=== PATIENT | female | born 1945 | race Caucasian/White ===

== ENCOUNTER 2022-09-22 14:07 | Emergency (ER) | payer BC, SELFPAY ==
[2022-09-22 14:22] VITALS: BP 137/65; PULSE 70; RESP 16; TEMP 36.9; O2SAT 96; BMI 24.7
--- NOTE | 2022-09-22 17:10 | DI.US.S_ITS ---
PROCEDURE: US PERIPH VENOUS LOW EXTREM RT INDICATIONS: CALF PAIN TECHNIQUE: Real-time imaging, as well as color and pulse Doppler interrogation, were performed of the lower extremity deep veins from the inguinal ligament to the popliteal fossa. COMPARISON: None. FINDINGS: The common femoral, femoral and popliteal veins are normally compressible, and free of intraluminal thrombus. Color and pulse Doppler demonstrate normal phasic intraluminal flow. There is normal augmentation response to distal compression maneuver. IMPRESSION: No evidence of right lower extremity DVT.. Dictated by: Gordon Wasserman M.D. on 09/22/2022 at 16:33 Approved by: Gordon Wasserman M.D. on 09/22/2022 at 16:42
--- NOTE | 2022-09-22 17:32 | ED.BACK ---
HPI - Back Pain/Injury <Dominick Diaz PA-C - Last Filed: 09/22/22 18:28> General Chief Complaint: Back Pain/Injury Stated Complaint: back injury/feels like pinched nerve/hard to walk Time Seen by Provider: 09/22/22 15:28 Source: patient History of Present Illness HPI Narrative: 77-year-old female with past medical history of slipped disc presents to the ED with 6 days of right-sided lower back pain radiating down to the right leg. Patient states that she was leaning forward while doing something at home, when she felt a twinge in the right lower back, following which she is has lower back pain radiating down the right leg. Patient denies numbness, tingling, weakness. Patient has a distant history of slipped disc. Patient denies saddle paresthesias, urinary hesitancy, urinary incontinence, stool incontinence. Patient is able to bear weight and walk. Patient also points to a particular spot on the right calf that is particularly painful. No history of DVTs or PEs. Related Data Previous Rx's Medication Instructions Recorded cyclobenzaprine 10 mg tablet 10 mg PO TID PRN muscle spasm #30 09/22/22 tabs Allergies Allergy/AdvReac Type Severity Reaction Status Date / Time No Known Drug Allergies Allergy Verified 09/22/22 14:22 Review of Systems <Dominick Diaz PA-C - Last Filed: 09/22/22 18:28> Review of Systems ROS Unobtainable: All systems reviewed & are unremarkable except as noted in HPI and below Constitutional Constitutional: Denies chills, Denies fatigue, Denies fever(s), Denies frequent falls, Denies lethargy and Denies weakness Eyes Eyes: Denies change in vision, Denies eye discharge, Denies irritation and Denies loss of vision ENT Ears, Nose, Mouth, and Throat: Denies change in voice, Denies dizziness, Denies neck pain, Denies sore throat and Denies throat swelling Cardiovascular Cardiovascular: Denies chest pain, Denies irregular heart rhythm, Denies lightheadedness, Denies palpitations, Denies dyspnea, Denies dyspnea on exertion and Denies orthopnea Respiratory Respiratory: Denies cough, Denies dyspnea, Denies dyspnea on exertion and Denies wheezing Gastrointestinal Gastrointestinal: Denies abdominal pain, Denies change in bowel habits, Denies diarrhea, Denies nausea and Denies vomiting Genitourinary Genitourinary: Denies hematuria, Denies flank pain, Denies urinary incontinence and Denies urinary urgency Musculoskeletal Musculoskeletal: Reports back pain, Denies muscle weakness, Denies neck pain, Denies numbness and Denies tingling Comments: Lower back pain, right lower leg pain Integumentary/Breasts Skin/Breast: Denies pruritus, Denies erythema, Denies rash and Denies wounds Neurologic Neurologic: Denies behavioral changes, Denies confusion, Denies dizziness, Denies frequent falls, Denies loss of vision, Denies numbness, Denies tingling and Denies weakness Psychiatric Psychiatric: Denies anxiety, Denies behavioral changes, Denies confusion, Denies depression, Denies homicidal ideation and Denies suicidal ideation Endocrine Endocrine: Denies fatigue, Denies flushing and Denies palpitations Hematologic/Lymphatic Hematologic/Lymphatic: Denies easy bruising Allergic/Immunologic Allergic/Immunologic: Denies urticaria, Denies throat swelling and Denies wheezing Patient History <Dominick Diaz PA-C - Last Filed: 09/22/22 18:28> Social History Smoking Status: Never smoker Smoking Status: Never smoker alcohol intake frequency: other Substance Use Type: does not use Exam <Dominick Diaz PA-C - Last Filed: 09/22/22 18:28> Narrative Exam Narrative: Const General:?cooperative, healthy appearing and comfortable [facility] Head:?normal to inspection Ears:?hearing grossly normal bilaterally Nose:?external nose normal Face and sinus:?normal facial exam and sinuses nontender Mouth:?oral mucosae normal Throat:?posterior oropharynx normal Eyes General:?appearance normal, both eyes and all related structures Neck Neck:?normal visual inspection and no lymphadenopathy noted Resp Effort & Inspection:?normal respiratory effort Auscultation:?clear to auscultation bilaterally Cardio Rate:?regular rate Rhythm:?regular rhythm Musculoskeletal No midline tenderness to palpation. No paraspinal tenderness to palpation. Strength and sensation is intact. There is full range of motion. Patient is neurovascularly intact. Right lower calf without tenderness to palpation or bruising. Neuro General:?patient alert, patient awake and patient oriented x3 Initial Vital Signs Initial Vital Signs: Vital Signs Temperature 98.5 F 09/22/22 14:22 Pulse Rate 70 09/22/22 14:22 Respiratory Rate 16 09/22/22 14:22 Blood Pressure 137/65 09/22/22 14:22 Pulse Oximetry 96 09/22/22 14:22 Oxygen Delivery Method Room Air 09/22/22 14:22 <Gama Hutson DO - Last Filed: 09/25/22 14:13> Initial Vital Signs Initial Vital Signs: Vital Signs Temperature 98.5 F 09/22/22 14:22 Pulse Rate 70 09/22/22 14:22 Respiratory Rate 16 09/22/22 14:22 Blood Pressure 137/65 09/22/22 14:22 Pulse Oximetry 96 09/22/22 14:22 Oxygen Delivery Method Room Air 09/22/22 14:22 Course <Dominick Diaz PA-C - Last Filed: 09/22/22 18:28> Orders Ordered: Discontinued Medications Cyclobenzaprine HCl (Cyclobenzaprine 10 Mg Tablet) 10 mg PO NOW ONE Stop: 09/22/22 17:06 Last Admin: 09/22/22 18:03 Dose: 10 mg Documented By: LITTLE Vital Signs Vital signs: Vital Signs - 8 hr 09/22/22 14:22 Temperature 98.5 F Pulse Rate 70 Respiratory Rate 16 Blood Pressure 137/65 Pulse Oximetry 96 Oxygen Delivery Method Room Air <Gama Huston DO - Last Filed: 09/25/22 14:13> Orders Ordered: Discontinued Medications Cyclobenzaprine HCl (Cyclobenzaprine 10 Mg Tablet) 10 mg PO NOW ONE Stop: 09/22/22 17:06 Last Admin: 09/22/22 18:03 Dose: 10 mg Documented By: RL Vital Signs Vital signs: Vital Signs - 8 hr 09/22/22 14:22 Temperature 98.5 F Pulse Rate 70 Respiratory Rate 16 Blood Pressure 137/65 Pulse Oximetry 96 Oxygen Delivery Method Room Air MDM - Back Pain/Injury <Dominick Diaz PA-C - Last Filed: 09/22/22 18:28> MDM Narrative Medical decision making narrative: 77-year-old female with past medical history of slipped disc presents to the ED with 6 days of right-sided lower back pain radiating down to the right leg. Concern for DVT versus musculoskeletal sprain/strain versus slipped disc versus other. Will give Flexeril for symptoms. Will obtain ultrasound right lower extremity to rule out a DVT. Will reassess. Ultrasound negative for any acute findings. Discussed findings with patient. Recommend Flexeril for symptom control along with ibuprofen or Tylenol. Recommend follow-up with PCP for further evaluation and referral to physical therapy. ED return precautions discussed with patient. Patient verbalized understanding. Medical records reviewed: Yes Discharge Plan Departure Patient Disposition: Home Clinical Impression: Lower back pain, Leg pain Instructions: DI for Back Pain With Sciatica Activity Restrictions/Additional Instructions: You were evaluated in the ED today for lower back pain and leg pain. The ultrasound did not show any blood clots. Your physical exam is reassuring. Your symptoms are most likely due to a musculoskeletal sprain/strain versus a bulging slip disc. You may take Flexeril for your symptoms along with Tylenol or ibuprofen. Please follow-up with your primary care provider further evaluation. Return to the ED if you experience numbness tingling, weakness, urinary difficulties. Prescriptions: New cyclobenzaprine 10 mg tablet 10 mg PO TID PRN (Reason: muscle spasm) Qty: 30 0RF Stand Alone Forms: Patient Portal/API <Gama Hutson DO - Last Filed: 09/25/22 14:13> Cosign ED Attending Cosignature Attestation: I was immediately available in the department for consultation. This documentation has been reviewed and I agree with assessment and plan. Supervised by Gama Hutson DO
[2022-09-22] MEDS: CYCLOBENZAPRINE 10 MG TABLET PO (18:03)
== END 2022-09-22 18:29 | disposition home or self-care (01) ==
PROVIDERS: Emergency Provider Student in an Organized Health Care Education/Training Program
DX: M54.50 Low back pain, unspecified (principal); M79.604 Pain in right leg
CPT/HCPCS: 93971; 99283